=== PATIENT | male | born 1990 ===

== ENCOUNTER 2018-01-17 14:01 | Day surgery (SDC) | payer MEDICAID ==
[2018-01-17 14:25] VITALS: BMI 21.9
[2018-01-17] MEDS ORDERED: Sodium Chloride 0.9% 1,000 ML IV STA (14:32)
--- NOTE | 2018-01-17 14:45 | ED PDOC ---
Arrival/HPI - General Chief Complaint: Abdominal Pain Time Seen by Provider: 01/17/18 14:11 Historian: Patient - History of Present Illness Narrative History of Present Illness (Text): 01/17/18 14:42 27yr old male presents today with sudden onset of right sided testicular pain radiating to right abdomen and right flank. pt states pain started 1 hours prior to arrival; pt rates pain as 10/10, sharp and stabbing. pt c/o nausea. no vomiting/diarrhea. denies cp or sob. denies dizziness or weakness. denies dysuria, urinary frequency or urgency. no fever/chills. no other complaints. Past Medical History - Provider Review Nursing Documentation Reviewed: Yes - Travel History Have you recently traveled outside [place] w/in the past 3 mons?: No - Infectious Disease Hx of Infectious Diseases: None - Tetanus Immunization Tetanus Immunization: Up to Date - Past Medical History Past Medical History: No Previous - Cardiac Hx Cardiac Disorders: No - Pulmonary Hx Respiratory Disorders: No - Neurological Hx Neurological Disorder: No - HEENT Hx HEENT Disorder: No - Renal Hx Renal Disorder: No - Endocrine/Metabolic Hx Endocrine Disorders: No - Hematological/Oncological Hx Blood Disorders: No - Integumentary Hx Dermatological Disorder: No - Musculoskeletal/Rheumatological Hx Musculoskeletal Disorders: No Hx Falls: No - Gastrointestinal Hx Gastrointestinal Disorders: No - Genitourinary/Gynecological Hx Genitourinary Disorders: No - Psychiatric Hx Psychophysiologic Disorder: No Hx Depression: No Hx Emotional Abuse: No Hx Physical Abuse: No Hx Substance Use: No - Surgical History Hx Orthopedic Surgery: Yes (left wrist fx, jaw fx) Other/Comment: Hernia repair - Anesthesia Hx Anesthesia: Yes Hx Anesthesia Reactions: No Hx Malignant Hyperthermia: No - Suicidal Assessment Feels Threatened In Home Enviroment: No Family/Social History - Physician Review Nursing Documentation Reviewed: Yes Family/Social History: Unknown Family HX Smoking Status: Light Smoker < 10 Cigarettes Daily Hx Alcohol Use: Yes Frequency of alcohol use: Socially Hx Substance Use: No Substance used: cocaine, marijuana Hx Substance Use Treatment: No Allergies/Home Meds Allergies/Adverse Reactions: Allergies Penicillins Allergy (Verified 01/17/18 14:24) RASH Home Medications: Home Meds Medication Instructions Recorded Confirmed Omeprazole Magnesium [Prilosec Otc] 20 mg PO DAILY 01/17/18 01/17/18 Review of Systems - Review of Systems Constitutional: absent: Fatigue, Fevers Respiratory: absent: SOB, Cough Cardiovascular: absent: Chest Pain, Palpitations Gastrointestinal: Abdominal Pain, Nausea. absent: Constipation, Diarrhea, Vomiting Genitourinary Male: Other (right sided testicular pain). absent: Dysuria, Frequency, Hematuria Musculoskeletal: Back Pain. absent: Arthralgias, Neck Pain Skin: absent: Rash, Pruritis Neurological: absent: Headache, Dizziness Psychiatric: absent: Anxiety, Depression, Suicidal Ideation Physical Exam Vital Signs Reviewed: Yes Vital Signs Temp Pulse Resp BP Pulse Ox 01/17/18 15:57 98.5 F 74 19 122/77 97 01/17/18 14:25 98.6 F 88 21 130/85 100 01/17/18 14:10 97.8 F 70 18 130/97 H 100 Temperature: Afebrile Blood Pressure: Hypertensive Pulse: Regular Respiratory Rate: Normal Appearance: Positive for: Well-Appearing, Non-Toxic, Uncomfortable Pain Distress: None Mental Status: Positive for: Alert and Oriented X 3 - Systems Exam Head: Present: Atraumatic Neck: Present: Normal Range of Motion Respiratory/Chest: Present: Clear to Auscultation, Good Air Exchange. No: Respiratory Distress, Accessory Muscle Use Cardiovascular: Present: Regular Rate and Rhythm, Normal S1, S2. No: Murmurs Abdomen: Present: Tenderness (+ minimal right lower pelvic tenderness), Normal Bowel Sounds, Guarding. No: Distention, Peritoneal Signs, Rebound Genitourinary Male: Present: Testicle Tenderness (right sided), Testicle Swelling, Other (chaparoned by [facility] EMT). No: Circumcised Penis, Lesions, Penile Discharge, Penile Swelling, Erythema Back: Present: Normal Inspection. No: CVA Tenderness, Midline Tenderness, Paraspinal Tenderness Upper Extremity: Present: Normal ROM Lower Extremity: Present: Normal ROM Neurological: Present: GCS=15, Speech Normal Skin: Present: Warm, Dry, Normal Color. No: Rashes Psychiatric: Present: Alert, Oriented x 3 Medical Decision Making ED Course and Treatment: 01/17/18 14:46 Patient is nontoxic well appearing with stable vital signs presenting with right sided testicular pain and abdominal pain that started 1 hour prior to arrival. pt was immediately seen by dr. orellana due to concern for testicular torsion; US ordered. toradol given for pain. pt transferred to US for duplex; I was at bedside with patient during Ultrasound; after visualization of no blood flow to right testicle dr. monaco was immediately paged. call placed to dr. monaco (urologist [employer] salesperson) for possible torsion. 3:16Pm; i spoke with dr. monaco;discussed case in depth; advised him of Torsion ; He will set up OR. CBC:wnl CMP: wnl Lipase: wnl Urinalysis: WNL testicular Ultrasound: FINDINGS: RIGHT TESTICLE: Measures 5.3 x 2.8 x 3.4 cm. While right testicle appears homogeneous in overall echogenicity, it is larger than the left testicle and a minimal hydrocele is seen in its periphery. There is no visible color or spectral Doppler blood flow appreciated at this time. No cystic or solid mass is identified. RIGHT EPIDIDYMIS: Epididymal head measures 1.5 x 0.6 x 1.0 cm. Grossly unremarkable appearance with normal flow. LEFT TESTICLE: Measures 3.4 x 2.0 x 2.8 cm. No cyst or solid mass is seen throughout the left testicle. Left testicle exhibits intratesticular arterial blood flow with no evidence to suggest torsion. . LEFT EPIDIDYMIS: Epididymal head measures 0.8 x 0.6 x 0.6 cm. Grossly unremarkable appearance with normal flow. HYDROCELE: Right-sided as discussed above. VARICOCELE: None. OTHER FINDINGS: None. IMPRESSION: Findings suggestive of right testicular torsion. A mild right hydrocele is identified. Unremarkable left testicle and bilateral epididymitis. Findings preliminarily discussed with Dr. Orellana by telephone 01/17/2018 3:15 p.m.. Patient reassessment:pt with continued pain; morphine added. Discussed all results with patient in depth case discussed with hospitalist dr. delgado; accepts admission after surgery. Impression: Testicular torsion admit to OR. Reassessment Condition: Re-examined, Improving,but remains with symptoms (pain in minimally improved. ) - Lab Interpretations Lab Results: 01/17/18 14:45 01/17/18 14:45 Lab Results 01/17/18 15:15: Blood Type Pending, Antibody Screen Pending, BBK History Checked No verified bt 01/17/18 15:13: Urine Color Yellow, Urine Appearance Clear, Urine pH 7.5, Ur Specific [place] 1.020, Urine Protein Negative, Urine Glucose (UA) Negative, Urine Ketones Negative, Urine Blood Negative, Urine Nitrate Negative, Urine Bilirubin Negative, Urine Urobilinogen 0.2, Ur Leukocyte Esterase Negative 01/17/18 14:45: PT 12.5, INR 1.09 H, APTT 30.7 01/17/18 14:45: WBC 7.1, RBC 5.08, Hgb 15.5, Hct 45.4, MCV 89.4, MCH 30.5, MCHC 34.1, RDW 13.5, Plt Count 244, MPV 10.2, Gran % 67.9, Lymph % (Auto) 21.1 L, [place] % (Auto) 6.9 H, Eos % (Auto) 3.8, Baso % (Auto) 0.3, Gran # 4.85, Lymph # ( Auto) 1.5, [place] # (Auto) 0.5, Eos # (Auto) 0.3, Baso # (Auto) 0.02 01/17/18 14:45: Sodium 140, Potassium 4.2, Chloride 100, Carbon Dioxide 30, Anion Gap 15, BUN 15, Creatinine 0.9, Est GFR ( Amer) > 60, Est GFR (Non- Af Amer) > 60, Random Glucose 117 H, Calcium 10.3, Total Bilirubin 0.8, AST 43, ALT 45, Alkaline Phosphatase 61, Total Protein 7.7, Albumin 4.6, Globulin 3.2, Albumin/Globulin Ratio 1.4, Lipase 119 - RAD Interpretation Radiology Orders: 01/17/18 14:31 TESTES DUPLEX COMPLETE [US] Stat - Medication Orders Current Medication Orders: Discontinued Medications Sodium Chloride (Sodium Chloride 0.9%) 1,000 mls @ 999 mls/hr IV .Q1H1M STA Stop: 01/17/18 15:32 Last Admin: 01/17/18 14:53 Dose: 999 mls/hr eMAR Start Stop Document 01/17/18 14:53 [email or web address] (Rec: 01/17/18 14:54 [email or web address] [id number]) Intravenous Solution Start Date 01/17/18 Start Time 14:54 End Date 01/17/18 Ketorolac Tromethamine (Toradol) 30 mg IVP STAT STA Stop: 01/17/18 14:45 Last Admin: 01/17/18 14:54 Dose: 30 mg MAR Pain Assessment Document 01/17/18 14:54 [email or web address] (Rec: 01/17/18 14:56 [id number]- [id number]) Pain Reassessment Is this a pain reassessment? No Sleep Is patient sleeping during reassessment? No Presence of Pain Presence of Pain Yes Pain Scale Used Pain Scale Used Numeric Location Pain Location Body Site Abdomen Description Description Constant Intensity of Pain at present 9 Radiation Location mid back Pain Behavior Facial Grimacing Aggravating Factors Changing Position Alleviating Factors/Management Medication Techniques Alleviating Factors Medication IVP Administration Document 01/17/18 14:54 [email or web address] (Rec: 01/17/18 14:56 [id number]- [id number]) Charges for Administration # of IVP Administrations 1 Morphine Sulfate (Morphine) 4 mg IVP STAT STA Stop: 01/17/18 15:34 Last Admin: 01/17/18 15:40 Dose: 4 mg MAR Pain Assessment Document 01/17/18 15:40 [email or web address] (Rec: 01/17/18 15:[id number]- [id number]) Pain Reassessment Is this a pain reassessment? No Sleep Is patient sleeping during reassessment? No Presence of Pain Presence of Pain Yes Location Upper or Lower Lower Description Description Constant Intensity of Pain at present 9 Pain Behavior Facial Grimacing Aggravating Factors Changing Position Alleviating Factors/Management Position Change Techniques Alleviating Factors Medication IVP Administration Document 01/17/18 15:40 [email or web address] (Rec: 01/17/18 15:[id number]- [id number]) Charges for Administration # of IVP Administrations 1 Disposition/Present on Arrival - Present on Arrival Any Indicators Present on Arrival: No History of DVT/PE: No History of Uncontrolled Diabetes: No Urinary Catheter: No History of Decub. Ulcer: No History Surgical Site Infection Following: None - Disposition Have Diagnosis and Disposition been Completed?: Yes Diagnosis: Testicular torsion Disposition: HOSPITALIZED Disposition Time: 15:39 Patient Plan: Admission Patient Problems: Current Active Problems Problem Status Onset Testicular torsion Acute Condition: SERIOUS Referrals: Fredi Cain, [Primary Care Provider] - Follow up with primary Forms: [employer] (Malagasy)
[2018-01-17 15:02] LABS: BASO # 0.02 K/mm3 (0.0-2.0); BASO % 0.3 % (0.0-3.0); EOS # 0.3 (0.0-0.7); EOS % 3.8 % (1.5-5.0); GRAN # 4.85 (1.4-6.5); GRAN % 67.9 % (50.0-68.0); HEMOGLOBIN 15.5 g/dL (14.0-18.0); LYMPH # 1.5 (1.2-3.4); LYMPH % 21.1 % (22.0-35.0); MEAN CELL VOLUME 89.4 fl (80.0-105.0); MEAN CORPUSCULAR HEMOGLOBIN 30.5 pg (25.0-35.0); MEAN CORPUSCULAR HGB CONC 34.1 g/dl (31.0-37.0); MEAN PLATELET VOLUME 10.2 fl (7.0-11.0); MONO # 0.5 (0.1-0.6); MONO % 6.9 % (1.0-6.0); RBC 5.08 10^6/uL (3.5-6.1); RED CELL DISTRIBUTION WIDTH 13.5 % (11.5-14.5); WHITE BLOOD COUNT 7.1 10^3/ul (4.5-11.0)
[2018-01-17 15:08] LABS: ALB/GLOB RATIO 1.4 (1.1-1.8); ALBUMIN 4.6 g/dL (3.0-4.8); CALCIUM 10.3 mg/dL (8.4-10.5); GFR AFRICAN-AMERICAN > 60; GFR NON-AFRICAN AMERICAN > 60; LIPASE 119 U/L (23-300)
[2018-01-17 15:13] LABS: ALT/SGPT 45 U/L (7-56); AST/SGOT 43 U/L (17-59); BLOOD UREA NITROGEN 15 mg/dL (7-21)
[2018-01-17 15:17] LABS: INR 1.09 (0.93-1.08); PARTIAL THROMBOPLASTIN TIME 30.7 Seconds (25.1-36.5); PROTHROMBIN TIME 12.5 SECONDS (9.4-12.5)
[2018-01-17 15:21] LABS: PH,URINE 7.5 (4.7-8.0); URINE BILIRUBIN NEGATIVE (NEGATIVE); URINE BLOOD NEGATIVE (NEGATIVE); URINE GLUCOSE (UA) NEGATIVE (NEGATIVE); URINE LEUKOCYTE ESTERASE NEGATIVE Leu/uL (NEGATIVE); URINE PROTEIN NEGATIVE mg/dL (<30 mg/dL); URINE UROBILINOGEN 0.2 E.U./dL (<1 E.U./dL)
[2018-01-17 15:23] LABS: URINE APPEARANCE CLEAR (CLEAR); URINE COLOR YELLOW (YELLOW)
[2018-01-17] MEDS ORDERED: Morphine 4 mg/ml ISec IVP STA (15:33)
--- NOTE | 2018-01-17 15:34 | US ---
HISTORY: right testicular pain TECHNIQUE: Realtime sonography through the scrotum with color and doppler flow. COMPARISON: None Available. FINDINGS: RIGHT TESTICLE: Measures 5.3 x 2.8 x 3.4 cm. While right testicle appears homogeneous in overall echogenicity, it is larger than the left testicle and a minimal hydrocele is seen in its periphery. There is no visible color or spectral Doppler blood flow appreciated at this time. No cystic or solid mass is identified. RIGHT EPIDIDYMIS: Epididymal head measures 1.5 x 0.6 x 1.0 cm. Grossly unremarkable appearance with normal flow. LEFT TESTICLE: Measures 3.4 x 2.0 x 2.8 cm. No cyst or solid mass is seen throughout the left testicle. Left testicle exhibits intratesticular arterial blood flow with no evidence to suggest torsion. . LEFT EPIDIDYMIS: Epididymal head measures 0.8 x 0.6 x 0.6 cm. Grossly unremarkable appearance with normal flow. HYDROCELE: Right-sided as discussed above. VARICOCELE: None. OTHER FINDINGS: None. IMPRESSION: Findings suggestive of right testicular torsion. A mild right hydrocele is identified. Unremarkable left testicle and bilateral epididymitis. Findings preliminarily discussed with Dr. Carpenter by telephone 01/17/2018 3:15 p.m..
[2018-01-17] MEDS ORDERED: Morphine 2 mg/ml ISec IVP STA (16:11)
[2018-01-17] MEDS ORDERED: Lidocaine 1% Inj (20ml) ONE (16:19)
[2018-01-17] MEDS ORDERED: Bupivacaine 0.5% Inj(30mL) ONE (16:19)
[2018-01-17] MEDS ORDERED: Propofol 10 mg/ml Inj (20 ML) ONE (16:35)
[2018-01-17] MEDS ORDERED: Midazolam 2 MG/2 ML VIAL ONE (16:35)
[2018-01-17] MEDS ORDERED: Lidocaine 2% Inj (20ml) ONE (16:36)
[2018-01-17 17:08] VITALS: TEMP 98.8
[2018-01-17] MEDS ORDERED: Azithromycin 1,000 MG in Sodium Chloride 0.9% 500 ML IVPB ONE (17:15)
[2018-01-17] MEDS ORDERED: Sodium Chloride 0.9% 1,000 ML IV SCH (17:15)
[2018-01-17] MEDS ORDERED: Gentamicin 80 mg/2mL Inj. ONE (17:43)
[2018-01-17] MEDS ORDERED: Vancomycin 1 g Inj ONE (17:43)
[2018-01-17] MEDS ORDERED: Rocuronium 10 mg/ml (5 ml) ONE (18:02)
[2018-01-17] MEDS ORDERED: Neostigmine Methylsulfate 3mg/3ml Syringe IV ONE (18:19)
[2018-01-17] MEDS ORDERED: Glycopyrrolate 0.2 mg/ml (2ml vial) ONE (18:20)
[2018-01-17] MEDS ORDERED: Bacitracin Ointment 30 GM TUBE ONE (18:30)
[2018-01-17] MEDS ORDERED: Lactated Ringer's 1,000 ML IV SCH (18:45)
[2018-01-17] MEDS ORDERED: HYDROmorphone 0.5 mg/0.5 ml ISec IVP PRN (18:45)
[2018-01-17] MEDS ORDERED: Oxycodone/Acetaminophen 5/325 mg Tab PO PRN (18:48)
[2018-01-17 19:09] VITALS: O2SAT 99
[2018-01-17 20:13] VITALS: BP 94/55; PULSE 58; RESP 16
--- NOTE | 2018-01-18 07:29 | CARD ---
APPROVED REPORT EKG Measurement Heart [id number] <Conclusion> Normal sinus rhythm with sinus arrhythmia RSR' or QR pattern in V1 suggests right ventricular conduction delay LVH by voltage, could be a normal variant
--- NOTE | 2018-01-23 08:11 | PN ---
DATE: 01/17/2018 IMMEDIATE POSTOPERATIVE NOTE PREOPERATIVE DIAGNOSIS: Scrotal pain and acute torsion of the right spermatic cord. POSTOPERATIVE DIAGNOSIS: Scrotal pain and acute torsion of the right spermatic cord. PROCEDURE: Scrotal exploration, detorsion, excision of an appendix testis. COMPLICATIONS: There were no complications. BLOOD LOSS: Noted. Less than 10 mL. DRAINS: No drains. We detorted. We provided antibiotics. Patient is in the recovery room in stable condition. See the operative note just dictated consult note. DISCHARGE PLAN: Patient is stable and eventually the plan will be for discharge home on antibiotics and analgesics. Evin Caballero MD
--- NOTE | 2018-01-23 09:44 | OP ---
PROCEDURE DATE: 01/17/2018 PREOPERATIVE DIAGNOSIS: Torsion of the right spermatic cord. POSTOPERATIVE DIAGNOSIS: Torsion of the right spermatic cord and appendix testis torsion. COMPLICATIONS: None. PROCEDURES: Scrotal exploration, detorsion, a right orchiopexy, and an excision of the congested appendix testis. BLOOD LOSS: Less than 10 mL. DRAINS: None. INDICATION OF PROCEDURE: See history and physical . This is a pleasant gentleman who is here for the above procedure. UROLOGY OPERATIVE FINDINGS There is torsion, it is about a 360 torsion. When we detorted the patient, it returned to its relatively normal color. As of separate manner as in congested reddened appendix testis, we excised this prior to this. Ultimately, they came out well. The blood loss is less than 10 mL. There are no drains and at the termination of the procedure, the patient was given Marcaine for postoperative analgesics as well. The patient has the testis in normal anatomic fashion and there is a 3-point orchiopexy suture material. DESCRIPTION OF PROCEDURE: After obtaining informed consent, the patient was placed on the table. Routine monitor was placed. Time-out was called to confirm the patient's positioning. The patient is awake, confirmed the positioning. Time-out was called. The patient was subsequently given anesthesia, analgesics and also, given antibiotic prophylaxis. We began our procedure with a transverse incision in the right hemiscrotum and dissected down quickly, meticulously to deliver the testicle. Actually, when we do so, we see directly a torted situation. I had the camera available, had the nursing try to take some pictures as quickly as we could to detort that. The testicles are somewhat darkened, but once we detorted it, looks to be torsion between about 270 to 360 twice until it goes back to normal anatomic position and color. We now inspected further and we noticed immediately the presence of the congested appendix testis. Picture was taken of this. This is also going to be excised. Not well appreciated previously. Now, we inspected carefully. We provided warm towel over the testicle . No other growth abnormities are detected. We are ready for a closure. We achieved hemostasis on the way. We put orchiopexy stitches with total of 3 on the dependent portions of the testicle. As we ____ very careful to just barely skin, we of the testicle, not even just barely putting this in place, we used permanent sutures. And then, we skin. At this point, once this was done, we inspected carefully, everything looks in good anatomic position. We provided some Marcaine for postoperative analgesics. We began our closure in layers. Again, it is all anatomically aligned up looks great. There is no bleeding. We provided skin sutures using interrupted Chromic. As mentioned, we gave some Marcaine for postoperative analgesia for the skin . The patient tolerated it without any complications. Evin Caballero MD
--- NOTE | 2018-01-23 09:51 | CON ---
DATE: 01/17/2018 UROLOGY CONSULTATION REASON FOR CONSULTATION: "Testicular thrush." HISTORY OF PRESENT ILLNESS: A very pleasant gentleman, 27-year-old, who presents with severe scrotal pain, acute onset in the right hemiscrotum to the point that he was passing out and needed to call the ambulance, it was sudden onset. No history of trauma. No dysuria. No burning. The suspicion was for a torsion, this is now confirmed by a scrotal ultrasound and see the plans below. We are bringing the patient immediately to the OR for an emergency exploration and detorsion. PAST MEDICAL AND SURGICAL HISTORY: Essentially negative for diabetes, CVA, OR, asthma, etc. No history otherwise. SOCIAL HISTORY: Socially, he is here with his roommate. He works as a . REVIEW OF SYSTEMS: Listed above, noncontributory. No weight loss or chest pain. PHYSICAL EXAMINATION: GENERAL: Well-nourished male, he is actually moderately uncomfortable, he is on the stretcher, he is trying to just lie fairly still. ABDOMEN: Soft. There is no rebound or guarding. No real CVA tenderness. GENITOURINARY: He has a normal phallus. His scrotal as follows, his left testicle is within normal limits. there are no cremasterics on either side. His right hemiscrotum is swollen and with a little bit of an abnormal lie horizontal. As mentioned, no cremasterics. It is too difficult to examine for any kind of mass-like effects. Labs, see chart. Ultrasound noted. DIAGNOSIS: Acute torsion of the spermatic cord. I explained to the patient and his friends that are surrounding him in careful detail what our plans and recommendations are. We recommend it is acute in onset and it is within a few hours, we have rearranged our entire schedule and even though the patient has eaten fairly recently within the last 8 hours, it is an emergency. I explained the patient risks and benefits explained the risks from an anesthesia standpoint, I also explained the risks of doing surgery versus the benefits of doing surgery versus the risk of not doing surgery, loss of testicle function. I db multiple pictures and explained in detail. Our plan is for a scrotal exploration. There is no evidence of any other specific abnormalities, masses, tumors, cancers, etc. No evidence of a hernia. No evidence of infection. It seems to be clear-cut case of a torsion. I explained to the patient the surgical plans and options and that would be our best recommendation. So, after explaining that the patient was also explained the risks of orchiectomy in the event that we found a completely torsed testicle with multiple twists. I explained about 180, 360,720. After explaining all these risks, benefits, and alternatives, the plan is as follows: 1. OR immediately. 2. Scrotal exploration, detorsion, and then further plans will follow. The patient will be given antibiotic prophylaxis. See the operative report. We actually found besides a torsion to the testicle and a blackened testicle that was then after detorting it, came back to its nice whitish color. Also, found a torsion of the appendix testis "a blue dot sign," although I did not appreciate that by a physical exam and certainly, it was not consistent with the history. It was definitely present, multiple pictures were taken and saved of that as well. 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 Evin Caballero MD
== END 2018-01-17 23:09 | disposition home or self-care (01) ==
LOC: ED 14:01 → SDS 16:06 → 5RSO 20:47 → SDS 23:09
PROVIDERS: ATTEND Urology
DX: N44.03 Torsion of appendix testis (principal); N43.3 Hydrocele, unspecified; Z88.0 Allergy status to penicillin
CPT/HCPCS: 54600; 80053; 81003; 83690; 85025; 85610; 85730; 86850; 86900; 87086; 88304; 93005; 93975; 96374; 96375; 99285; J0456; J1170; J1580; J1885; J2250; J2270 ×2; J2405; J2704; J2710; J2765; J3010; J7030; J7040 ×2; J7120 ×2

== ENCOUNTER 2018-08-10 21:44 | Emergency (ER) | payer SELFPAY ==
[2018-08-10 21:55] VITALS: TEMP 98.2
[2018-08-10 22:12] VITALS: BMI 23.5
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
[2018-08-11 01:07] VITALS: BP 120/73; PULSE 80; RESP 19; O2SAT 100
--- NOTE | 2018-08-11 07:33 | RAD ---
PROCEDURE: Right knee radiographs Right femur radiographs HISTORY: Pain COMPARISON: None available FINDINGS: BONES: No acute displaced fracture. JOINTS: No dislocation. Mild degenerative changes with tenting of the intercondylar notch. JOINT EFFUSION: No significant joint effusion. OTHER FINDINGS: None. IMPRESSION: No acute displaced fracture, dislocation, or significant joint effusion identified. If symptoms persist, or if there is continued clinical concern, x-ray follow-up in 7-10 days should be considered.
== END 2018-08-11 00:15 | disposition home or self-care (01) ==
LOC: ED 21:44
DX: S70.11XA Contusion of right thigh, initial encounter (principal); V09.9XXA Pedestrian injured in unspecified transport accident, initial encounter; Y93.51 Activity, roller skating (inline) and skateboarding; F17.210 Nicotine dependence, cigarettes, uncomplicated